=== PATIENT | female | born 1995 | race Caucasian/White ===

== ENCOUNTER 2017-02-05 12:50 | Emergency (ER) | payer OTHER ==
[2017-02-05 12:59] VITALS: BP 127/74; BMI 24.7
[2017-02-05 13:59] LABS: SERUM PREGNANCY TEST, QUAL NEGATIVE <10 mIU/mL
--- NOTE | 2017-02-05 14:08 | DR.PREG ---
HPI - Time seen Time seen: 13:35 - PCP Primary Care Physician: AFSHIN ZARAGOZA - HPI Comment HPI Comment: PATIENT SPORTING. THIS HSPPEN IN PREVIOUS . - Chief Complaint Chief Complaint Doctors Comments: PER POSITIVE HOME TEST. VAGINAL BLEEDING TODAY. Chief Complaint:: PT'S LAST PERIOD WAS 2 MONTHS AGO AND SHE TOOK A PREG TEST AND IT WAS POSITIVE .. PT IS A G4, P 0 , A3, L, 0 ..... PT C/O WIPING AND SEEING SOME BLOOD .. Self Treatment fo Chief Complaint: PT C/O LOWER ABD PAIN.....BR - Nurses Notes Reviewed Nurses Notes Review: Yes - Source History Provided: Patient - Mode of Arrival Mode of Arrival: Ambulatory - Context Complains of: Vaginal bleeding - Quality Vaginal fluid leakage color: Deferred - Timing Onset of Chief Complaint: 02/05/17 Came on: Suddenly Pain: Present Now Pain: None Pain Frequency: Hours - Severity Vaginal Bleeding: Deferred Vaginal Leakage: Deferred - Associated Signs & Symptoms Asociated signs & symptoms: Other (VAGINAL BLEEDING.) PMH - PMH Past Medical History: No Past Surgical History: No - Family History History of Family Medical Conditions: Yes - Social History Does patient currently use any type of tobacco product: No Have you used tobacco products in the last 12 months: No Type of Tobacco Use: None Does any household member use tobacco: No Alcohol Use: None Do you use any recreational Drugs:: No Lives With: Family Lives Where: Home - infectious screening In the last 2 months have you had wt loss of >10#?: NO Have you had fever, night sweats or hemotysis?: No Have you traveled outside the country in the last 6 months?: No Isolation: Standard ROS - Review of Systems Constitutional: No Symptoms Reported Eyes: No Symptoms Reported ENTM: No Symptoms Reported Respiratoy: No Symptoms Reported Cardiovascular: No Symptoms Reported Gastrointestinal/Abdominal: No Symptoms Reported Genitourinary: No Symptoms Reported Neurological: No Symptoms Reported Musculoskeletal: No Symptoms Reported Integumentary: No Symptoms Reported Hematologic/Lymphatic: No Symptoms Reported Endocrine: No Symptoms Reported All Other Systems: Reviewed and Negative PE - Vital Signs Vitals: Temperature 97.2 F Pulse Rate 100 Respiratory Rate 20 Blood Pressure 127/74 O2 Sat by Pulse Oximetry 94 - General Limitations: No Limitations General Appearance: Alert - Head Head Exam: Normal Inspection - Eyes Eye exam: Normal Appearance - ENT ENT Exam: Normal External Ear Exam - Neck Neck Exam: Normal Inspection - Chest Chest Inspection: Symmetric Chest Wall Rise - Respiratory Respiratory Exam: Normal Lung Sounds Bilat Respiratory Exam: Bilateral Clear to Auscultation - Cardiovascular Cardiovascular Exam: Regular Rate, Normal Rhythm, Normal Heart Sounds - Abdominal Exam Abdominal Exam: Normal Bowel Sounds, Soft. negative: Tenderness Abdominal Tenderness: Other (NONE) - Exam Type: N/A - Back Back Exam: Normal Inspection - Extremeties Extremities Exam: Normal Inspection - Neurologic Neurological Exam: Alert, Oriented X3 - Psychiatric Psychiatric Exam: Normal Affect, Normal Mood - Skin Skin Exam: Normal Color MDM - Differential Diagnosis Differential Diagnosis: Urinary tract infection, Vaginal bleeding Course - Treatment Treatment: SEE ORDERS - Education/Counseling Education/Counseling: Patient, Education Educated On: Treatment, Diagnosis, Needs for Follow Up ROR - Labs Reviewed Laboratory Results Reviewed?: Yes Laboratory: HCG, Qual Negative <10 mIU/mL 02/05/17 13:46 Specimen Type Clean catch urine 02/05/17 14:04 Urine Color [place] (YELLOW) 02/05/17 14:04 Urine Appearance Slightly hazy (CLEAR) 02/05/17 14:04 Urine pH 7.0 (5.0 - 8.0) 02/05/17 14:04 Ur Specific [place] 1.010 (1.000-1.030) 02/05/17 14:04 Urine Protein 1+ (NEGATIVE) 02/05/17 14:04 Urine Glucose (UA) Negative (NEGATIVE) 02/05/17 14:04 Urine Ketones Negative (NEGATIVE) 02/05/17 14:04 Urine Occult Blood 5+ (NEGATIVE) 02/05/17 14:04 Urine Nitrite Negative (NEGATIVE) 02/05/17 14:04 Urine Bilirubin Negative (NEGATIVE) 02/05/17 14:04 Urine Urobilinogen Normal (NORMAL) 02/05/17 14:04 Ur Leukocyte Esterase 1+ (NEGATIVE) 02/05/17 14:04 Urine RBC 20-25 /HPF (NEGATIVE) 02/05/17 14:04 Urine WBC Rare /HPF (NEGATIVE) 02/05/17 14:04 Ur Squamous Epith Cells Rare /HPF (NEGATIVE) 02/05/17 14:04 Urine Bacteria Negative /HPF (NEGATIVE) 02/05/17 14:04 Urine Mucus Few /HPF (NEGATIVE) 02/05/17 14:04 Ur Culture Indicated? No/not indicated 02/05/17 14:04 - Diagnosis Discharge Problem: Vaginal bleeding - Discharge Plan Disposition: 01 HOME, SELF-CARE Condition: Stable - Follow ups/Referrals Follow ups/Referrals: N[facility],None [Primary Care Provider] - 3 days - Instructions Additional Instructions: YOU HAVE BLOOD IN URINE. YOU ARE ALSO COMPLAINING OF VAGINAL BLEEDING. FOLLOW UP WITH YOUR DOCTOR. RETURN TO ED IF WORSE.
[2017-02-05 14:16] LABS: BILIRUBIN,URINE NEGATIVE (NEGATIVE); BLOOD/HEMOGLOBIN,URINE 5+ (NEGATIVE); GLUCOSE, URINE NEGATIVE (NEGATIVE); KETONES,URINE NEGATIVE (NEGATIVE); LEUKOCYTE ESTERASE ,URINE 1+ (NEGATIVE); NITRITES,URINE NEGATIVE (NEGATIVE); PROTEIN,URINE 1+ (NEGATIVE); UROBILINOGEN,URINE NORMAL (NORMAL)
[2017-02-05 14:36] LABS: APPEARANCE,URINE SLIGHTLY HAZY (CLEAR); BACTERIA,URINE NEGATIVE /HPF (NEGATIVE); COLOR,URINE PINK (YELLOW); MUCUS,URINE FEW /HPF (NEGATIVE); RBC,URINE 20-25 /HPF (NEGATIVE); SQUAMOUS EPITHELIAL CELL,UR RARE /HPF (NEGATIVE)
== END 2017-02-05 15:01 | disposition home or self-care (01) ==
LOC: ER 13:11
DX: N93.9 Abnormal uterine and vaginal bleeding, unspecified (principal)
CPT/HCPCS: 36415; 81001; 84703; 99282